=== PATIENT | female | born 2000 | race Caucasian/White ===

== ENCOUNTER 2019-09-28 14:11 | Emergency (ER) | payer OTHER, SELFPAY ==
[2019-09-28 14:27] VITALS: BP 132/87; PULSE 103; RESP 16; TEMP 37.3; O2SAT 99
--- NOTE | 2019-09-28 14:51 | ED.GENADULT ---
HPI - General Adult General Chief complaint: Upper Respiratory Infection Stated complaint: cough/chest congestion/runny nose/migraines Time Seen by Provider: 09/28/19 14:51 Source: patient and RN notes reviewed Mode of arrival: ambulatory Limitations: no limitations History of Present Illness HPI narrative: 18-year-old female presents with complaints of upper respiratory infection symptoms, itchy throat, chest wall tenderness and cough for the past 2-3 days. Benadryl and DayQuil with little relief. Constant dry cough with intermittent productive cough (yellow and brown phlegm). Rhinorrhea and nasal congestion. Denies sore throat. No high fevers, drooling, neck or throat swelling. No cardiac chest pain, wheezing, or shortness of breath. Exacerbation factors consist of smoke exposure. Denies nausea, vomiting, and abdominal pain. Tolerating liquids well. Remains active. Angeli denies being ,LMP 2 weeks ago. Some parts of this dictation were generated by voice recognition software and may contain typographical and/or grammatical inaccuracies. Related Data Home Medications Medication Instructions Recorded Confirmed Vicks DayQuil Cough 09/28/19 Allergies Allergy/AdvReac Type Severity Reaction Status Date / Time ceftriaxone Allergy Intermediate RASH, Verified 03/01/19 14:18 ITCHING cephalexin Allergy Intermediate HIVES/RASH Verified 03/01/19 14:18 Review of Systems Review of Systems: Narrative: CONSTITUTIONAL: Denies fever, chills, sweats. EYES: Denies visual changes, redness, discharge. ENT: Denies rhinorrhea, congestion, itchy throat, bilateral otalgia. CARDIOVASCULAR: Denies chest pain, palpitations, edema. RESPIRATORY: Denies dyspnea, wheezing. Complains of dry cough intermittent productive cough. GASTROINTESTINAL: Denies abdominal pain, nausea, vomiting, diarrhea. GENITOURINARY: Denies dysuria, hematuria, abnormal discharge. SKIN: Denies rash or itching. MUSCULOSKELETAL: Denies acute back pain, joint pain, or myalgia. Complains of diffused chest wall tenderness. NEUROLOGIC: Denies numbness or focal weakness. PSYCHIATRIC: Denies anxiety or depression. All systems reviewed & are unremarkable except as noted in HPI and below. [facility] Past Medical History Medical History (Updated 09/29/19 @ 00:01 by Jayde Sevilla) No significant past medical history Surgical History Surgical History (Updated 09/28/19 @ 15:01 by AFRICA Moreno) No significant past surgical history Family History Family History (Updated 09/28/19 @ 15:01 by AFRICA Moreno) Sibling ALL (acute lymphocytic leukemia) Social History Social History (Updated 09/28/19 @ 15:02 by AFRICA Moreno) Smoking status: Current every day smoker Tobacco type: e-cigarettes Second hand tobacco smoke exposure: Yes Alcohol intake: current Alcohol use details: Occasional Substance use: current Substance use type: marijuana Living arrangements: with family Occupation/Education: unemployed Gender identity (if verbalized by the patient): Female Comments At time of signature, agree with nurse past medical, surgical, social, and family history. There is no relevant family history pertinent to the presenting complaint. Exam Narrative: Exam Narrative: GENERAL: This is a well-nourished, well-developed patient, in no apparent distress. Talks in full sentences and ambulates with steady gait without dyspnea. HEAD: normocephalic, atraumatic. EYES: PERRL. Sclera clear/white. Vision is grossly intact. EARS: External ears normal, auditory canals clear and without drainage, TMs normal without perforation. Hearing grossly intact. NOSE: External nose normal with no obvious nasal discharge, nares with moderate redness and enlarged turbinates, yellow rhinorrhea. THROAT: Mucous membranes moist, posterior pharynx with PND, mild erythema, no exudate, and normal tonsils. No drainage, no concern for Pearl
[2019-09-28 15:19] VITALS: PULSE 101
== END 2019-09-28 15:25 | disposition home or self-care (01) ==
PROVIDERS: Emergency Provider Nurse Practitioner Family; PCP Pediatrics
DX: J06.9 Acute upper respiratory infection, unspecified (principal); F17.200 Nicotine dependence, unspecified, uncomplicated
CPT/HCPCS: 99213; G0463

== ENCOUNTER 2022-08-27 13:56 | Emergency (ER) | payer OTHER, SELFPAY ==
[2022-08-27 14:18] VITALS: BP 125/82; PULSE 100; RESP 16; TEMP 37.2; O2SAT 100
--- NOTE | 2022-08-27 14:49 | ED.URI ---
HPI - URI/Sore Throat General Chief Complaint: Upper Respiratory Infection Stated Complaint: covid sx Time Seen by Provider: 08/27/22 14:20 Source: patient Mode of arrival: ambulatory Limitations: no limitations History of Present Illness HPI Narrative: Mariella is a 21-year-old female patient presenting to the clinic today with complaints of cough, runny nose, sore throat, nasal congestion, fever, right ear pain, and chills x3 days. She denies any known exposure to anybody with COVID, flu, or strep MD elicited complaint: fever, cough, sore throat, rhinorrhea and nasal congestion Related Data Home Medications Medication Instructions Recorded Confirmed No Home Medications 08/27/22 08/27/22 Allergies Allergy/AdvReac Type Severity Reaction Status Date / Time ceftriaxone Allergy Intermediate RASH, Verified 08/27/22 14:26 ITCHING cephalexin Allergy Intermediate HIVES/RASH Verified 08/27/22 14:26 Review of Systems Review of Systems: Pertinent positives per HPI. Patient denies any rash, visual changes, dizziness, shortness of breath, chest pain, palpitations, nausea, vomiting, diarrhea, constipation, abdominal pain, or any urinary issues. [facility] Past Medical History Medical History No significant past medical history Surgical History Surgical History No significant past surgical history Family History Family History Sibling ALL (acute lymphocytic leukemia) Social History Social History Smoking status: Current every day smoker Tobacco type: e-cigarettes/vaping Second hand tobacco smoke exposure: Yes Alcohol intake: current Alcohol use details: Occasional Substance use: current Substance use type: marijuana Living arrangements: with family Occupation/Education: unemployed Gender identity (if verbalized by the patient): Female Comments At the time of my signature, I reviewed and agree with the nursing past medical, surgical, social, and family history. There is no relevant family history pertinent to the patient complaint. Exam Narrative: General: Well-developed, well nourished, in no apparent distress Head: Normocephalic, atraumatic Eyes: Pupils equally round and reactive to light bilaterally, EOM intact, sclera and conjunctive clear, no discharge, lids normal Ears: TMs intact and congested, ear canals clear, no drainage, grossly hearing normal. Nose: Nares patent, clear nasal discharge, no inflammation, no sinus tenderness. Mouth: Oral pharynx without lesions or masses, good dentition, MMM. Oropharynx red Neck: Supple, trachea midline, no enlargement of anterior or posterior cervical nodes, no thyroid masses or goiter palpable. Cardio: Regular rate and rhythm, s1 and s2 normal, no murmur appreciated. Resp: Clear to auscultation bilaterally, no rhonchi, rales, wheezing or rubs Course Course Emergency Course: Portions of this record may have been created with voice recognition software. Level of Care: Express Care Visit Vital Signs Vital signs: Vital Signs Temperature 37.2 C 08/27/22 14:18 Pulse Rate 100 08/27/22 14:18 Respiratory Rate 16 08/27/22 14:18 Blood Pressure 125/82 08/27/22 14:18 Pulse Oximetry 100 08/27/22 14:18 Oxygen Delivery Room Air 08/27/22 14:18 Temperature 37.2 C 08/27/22 14:18 Pulse Rate 100 08/27/22 14:18 Respiratory Rate 16 08/27/22 14:18 Blood Pressure 125/82 08/27/22 14:18 Pulse Oximetry 100 08/27/22 14:18 Oxygen Delivery Room Air 08/27/22 14:18 Vital signs reviewed MDM - URI/Sore Throat MDM Narrative Medical decision making narrative: At the time of visit patient is resting comfortably on the exam table. Influenza, COVID, and strep test were performed and
== END 2022-08-27 14:58 | disposition home or self-care (01) ==
PROVIDERS: Emergency Provider Nurse Practitioner Family
DX: J02.8 Acute pharyngitis due to other specified organisms (principal); F17.290 Nicotine dependence, other tobacco product, uncomplicated; Z20.822 Contact with and (suspected) exposure to COVID-19
CPT/HCPCS: 87081; 87426; 87804; 87880; 99213; C9803; G0463

== ENCOUNTER 2022-12-30 15:29 | Emergency (ER) | payer OTHER, SELFPAY ==
[2022-12-30 15:34] VITALS: BP 112/69; PULSE 96; RESP 16; TEMP 37.2; O2SAT 100
--- NOTE | 2022-12-30 15:38 | ED.URI ---
HPI - URI/Sore Throat General Chief Complaint: Upper Respiratory Infection Stated Complaint: Sore Throat/Ears Irritation Time Seen by Provider: 12/30/22 16:02 Source: patient and RN notes reviewed Mode of arrival: ambulatory Limitations: no limitations History of Present Illness HPI Narrative: 22-year-old female presents with concern for sore throat, rhinorrhea, nasal congestion. She reports that symptoms started yesterday she has swollen glands and pain behind her ears. She reports has had the symptoms on and off for the last couple of months. She denies taking any medication other than throat spray. MD elicited complaint: sore throat Related Data Home Medications Medication Instructions Recorded Confirmed No Home Medications 08/27/22 08/27/22 Allergies Allergy/AdvReac Type Severity Reaction Status Date / Time ceftriaxone Allergy Intermediate RASH, Verified 12/30/22 15:54 ITCHING cephalexin Allergy Intermediate HIVES/RASH Verified 12/30/22 15:54 Review of Systems Review of Systems: CONSTITUTIONAL: Denies malaise, chills, sweats, or fever. EYES: Denies visual changes, redness, or discharge. ENT: Reports rhinorrhea, congestion, sore throat, swollen lymph nodes. Denies sinus pain, otalgia CARDIOVASCULAR: Denies chest pain, palpitations, or edema. RESPIRATORY: Denies cough. Denies dyspnea. GASTROINTESTINAL: Denies abdominal pain, nausea, vomiting, diarrhea SKIN: Denies rash or itching. MUSCULOSKELETAL: Denies myalgia. NEUROLOGIC: Denies headache. All systems reviewed & are unremarkable except as noted in HPI and below PMFSH Past Medical History Medical History No significant past medical history Surgical History Surgical History No significant past surgical history Family History Family History Sibling ALL (acute lymphocytic leukemia) Social History Social History Smoking status: Current every day smoker Tobacco type: e-cigarettes/vaping Second hand tobacco smoke exposure: Yes Alcohol intake: current Alcohol use details: Occasional Substance use: current Substance use type: marijuana Living arrangements: with family Occupation/Education: unemployed Gender identity (if verbalized by the patient): Female Comments At time of signature, agree with nursing past medical, surgical, social and family history. There is no relevant family history pertinent to the presenting complaint Exam Narrative: GENERAL: Well-appearing, well-nourished, and in no acute distress. HEAD: Normocephalic EYES: PERRLA, conjunctivae clear ENT: Nares clear, turbinates edematous and erythematous, clear discharge. Mucous membranes moist. TM pearly clark with sharp light reflex bilaterally; no tragal tenderness. Oropharynx not erythematous without lesions. Tonsils not enlarged and without exudate, no drooling, no hoarseness, no trismus, uvula midline. NECK: Supple. No lymphadenopathy CHEST: Clear to auscultation, breath sounds equal. No wheezing, rhonchi, rales, or stridor. No respiratory distress, speaks in full sentences. HEART: Regular rate and rhythm. No murmur heard. SKIN: Warm, dry, no rash. NEURO: Alert and oriented x3. PSYCH: Normal mood and affect Course Course Emergency Course: Patient is aware of diagnosis, understands and agrees to treatment plan. Anticipatory guidance given. Patient agrees to follow-up as directed and is aware of reasons to seek care at the emergency department. Portions of this record may have been created with voice recognition software Level of Care: Express Care Visit Vital Signs Vital signs: Vital Signs Temperature 98.9 F 12/30/22 15:34 Pulse Rate 96 12/30/22 15:34 Respiratory Rate 16 12/30/22 15:34 Bloo
[2022-12-30 15:54] VITALS: BP 112/69; PULSE 96; RESP 16; TEMP 37.2; O2SAT 100
== END 2022-12-30 16:13 | disposition home or self-care (01) ==
PROVIDERS: Emergency Provider Nurse Practitioner
DX: J02.9 Acute pharyngitis, unspecified (principal); F17.290 Nicotine dependence, other tobacco product, uncomplicated; F12.90 Cannabis use, unspecified, uncomplicated
CPT/HCPCS: 87081; 87880; 99213; G0463

== ENCOUNTER 2023-01-31 12:46 | Emergency (ER) | payer OTHER, SELFPAY ==
[2023-01-31 12:56] VITALS: BP 122/72; PULSE 88; RESP 16; TEMP 37.2; O2SAT 99
--- NOTE | 2023-01-31 13:58 | ED.FEMALEGU ---
HPI - Female Genitourinary General Chief complaint: Urogenital-Female Stated complaint: STD exposure Time Seen by Provider: 01/31/23 13:52 Source: patient and RN notes reviewed Mode of arrival: ambulatory Limitations: no limitations History of Present Illness HPI Narrative: Patient presents today requesting testing for STIs. Boyfriend notified her that he tested positive for chlamydia yesterday. He has been started on treatment. Patient is having no symptoms. She wishes to only be treated for chlamydia. Related Data Allergies Allergy/AdvReac Type Severity Reaction Status Date / Time ceftriaxone Allergy Intermediate RASH, Verified 01/31/23 12:52 ITCHING cephalexin Allergy Intermediate HIVES/RASH Verified 01/31/23 12:52 Review of Systems Review of Systems: CONSTITUTIONAL: Denies body aches, fever, chills, or sweats. EYES: Denies visual changes, redness, or discharge. ENT: Denies rhinorrhea, congestion, sore throat, or otalgia. CARDIOVASCULAR: Denies chest pain, palpitations, or edema. RESPIRATORY: Denies cough or dyspnea. GASTROINTESTINAL: Denies abdominal pain, nausea, vomiting, or diarrhea. GENITOURINARY: Denies dysuria or hematuria. SKIN: Denies rash, itching, or wounds. MUSCULOSKELETAL: Denies back pain, joint pain, or myalgia. NEUROLOGIC: Denies headache, numbness, tingling, or weakness. PSYCH: Denies depression or anxiety. [facility] Past Medical History Medical History No significant past medical history Surgical History Surgical History No significant past surgical history Family History Family History Sibling ALL (acute lymphocytic leukemia) Social History Social History Smoking status: Current every day smoker Tobacco type: e-cigarettes/vaping Second hand tobacco smoke exposure: Yes Alcohol intake: current Alcohol use details: Occasional Substance use: current Substance use type: marijuana Living arrangements: with family Occupation/Education: unemployed Gender identity (if verbalized by the patient): Female Comments At time of signature, I have reviewed and agree with nursing past medical, surgical, social and family history unless otherwise noted. Please see nursing chart for further information. There is no relevant family history pertinent to the presenting complaint Exam Narrative: GENERAL: Well-appearing, well-nourished, and in no acute distress. HEAD: Normocephalic, atraumatic. EYES: EOMI. No redness or drainage. Conjunctivae normal. ENT: Mucous membranes pink and moist. NECK: Normal AROM. CHEST: No respiratory distress. EXTREMITIES: Normal range of motion. No edema. SKIN: Warm, dry, no rash. Capillary refill normal. Normal skin turgor. NEURO: No focal deficits. Alert and oriented x3. Gait steady. PSYCH: Normal affect. No signs of depression or anxiety. Course Course Level of Care: Express Care Visit Vital Signs Vital signs: Vital Signs Temperature 98.9 F 01/31/23 12:56 Pulse Rate 88 01/31/23 12:56 Respiratory Rate 16 01/31/23 12:56 Blood Pressure 122/72 01/31/23 12:56 Pulse Oximetry 99 01/31/23 12:56 Oxygen Delivery Room Air 01/31/23 12:56 Temperature 98.9 F 01/31/23 12:56 Pulse Rate 88 01/31/23 12:56 Respiratory Rate 16 01/31/23 12:56 Blood Pressure 122/72 01/31/23 12:56 Pulse Oximetry 99 01/31/23 12:56 Oxygen Delivery Room Air 01/31/23 12:56 Reviewed. Pt has been instructed to follow up with her PCP regarding her elevated blood pressure today. MDM - Female Genitourinary MDM Narrative Medical decision making narrative: Patient would like to be to tested for gonorrhea, chlamydia, and Trichomonas while she is here at Urgent Care, however, she only wa
== END 2023-01-31 14:06 | disposition home or self-care (01) ==
PROVIDERS: Emergency Provider Nurse Practitioner; PCP Family Medicine
DX: Z20.2 Contact with and (suspected) exposure to infections with a predominantly sexual mode of transmission (principal); F17.290 Nicotine dependence, other tobacco product, uncomplicated; F12.90 Cannabis use, unspecified, uncomplicated
CPT/HCPCS: 87491; 87591; 87661; 99214; G0463